=== PATIENT | male | born 1990 | race Two or more races ===

== ENCOUNTER 2025-06-06 20:10 | Emergency (ER) | payer OTHER ==
[~2025-06-06] VITALS: Ht 177.8 cm; Wt 78.0 kg
[2025-06-06 21:27] LABS: BASO % 0.3 % (0.1-1.2); EOS # 0.20 (0.04-0.54); EOS % 1.7 % (0.7-7.0); LYMPH # 1.96 (1.18-3.74); LYMPH % 16.3 % (19.3-53.1); MEAN PLATELET VOLUME 9.90 fl (9.4-12.4); MONO # 1.03 (0.24-0.82); MONO % 8.6 % (4.7-12.5); NEUT # 8.74 (1.56-6.13); NEUT % 72.8 % (34.0-71.1); RED CELL DISTRIBUTION WIDTH 13.2 % (11.6-14.4)
[2025-06-06 21:42] LABS: BUN CREA RATIO 15.0 (7.0-25.0); CREATININE SERUM 0.94 mg/dL (0.70-1.30); GFR 91.33; GLUCOSE FASTING 102.0 mg/dL (65-100); OSMOLALITY SERUM 282.0 MOSM/KG (275-295)
[2025-06-06 22:18] LABS: URINE APPEARANCE Clear; URINE BILIRRUBIN Negative (NEGATIVE); URINE BLOOD Negative; URINE COLOR Yellow; URINE GLUCOSE Negative (NEGATIVE); URINE KETONE Negative (NEGATIVE); URINE LEUKOCYTE Negative; URINE NITRATE Negative; URINE PROTEIN Negative (NEGATIVE); URINE UROBILINOGEN 0.2 E.U./dl
[2025-06-06 22:22] LABS: URINE BACTERIA 8.3 uL (0.0-1933); URINE WBC 3.3 uL (0.0-23.2)
[2025-06-06 22:23] LABS: URINE CAST 0.29 uL (0.0-1.40); URINE EPITHELIAL CELLS 0.4 uL (0.0-38.8); URINE RBC 0.2 uL (0.0-20.8)
== END 2025-06-06 23:33 | disposition home or self-care (01) ==
LOC: ER 20:10
PROVIDERS: General Practice
DX: R10.2 Pelvic and perineal pain (principal); N39.9 Disorder of urinary system, unspecified

== ENCOUNTER 2025-09-15 00:09 | Emergency (ER) | payer OTHER ==
[~2025-09-15] VITALS: Ht 177.8 cm; Wt 78.9 kg
[2025-09-15] MEDS ORDERED: ORPHENADRINE CITRATE 30 MG/ML AMPUL IM STA (02:45)
[2025-09-15] MEDS ORDERED: KETOROLAC TROMETHAMINE 60 MG VIAL IM STA (02:45)
[2025-09-15] MEDS ORDERED: KETOROLAC TROMETHAMINE 60 MG VIAL IM ONE (02:49)
[2025-09-15] MEDS ORDERED: ORPHENADRINE CITRATE 30 MG/ML AMPUL ONE (02:49)
[2025-09-15] MEDS ORDERED: KETO10TA2 PO (04:09)
[2025-09-15] MEDS ORDERED: NORFLEX100MG PO (04:09)
== END 2025-09-15 04:26 ==
LOC: ER 00:10
DX: M54.50 Low back pain, unspecified (principal); R05.9 Cough, unspecified